=== PATIENT | female | born 1965 | race Asian ===

== ENCOUNTER → 2016-11-30 | Outpatient (CLI) | payer BC, OTHER ==
--- NOTE | 2016-12-01 09:37 | CT ---
CT Upper Extremity, Left Forearm Without Contrast History: History of radius and ulna fracture with open reduction internal fixation. Delayed healing. Technique: Thin cut helical images were obtained of the forearm without contrast. Technique was optim ized to help diminish beam hardening artifact from the patient's known hardware. Multiplanar reformat ion was performed. Findings: Postsurgical changes are seen of open reduction internal fixation of a distal diaphyseal fr acture of the radius. Hardware appears intact without evidence for lucency around the plate or fixati on screws. There is an oblique fracture plane remaining at the mid aspect of the fixation with small amount of bridging bone dorsally. Majority of the fracture line does not have bridging bone. The padmini cent interfragmentary screw does not bridge this fracture plane. Postsurgical changes are seen of ope n reduction internal fixation of the distal diaphysis fracture of the ulna as well with mild residual comminuted fracture remaining at the mid aspect of the fixation. There is bridging bone at this frac ture of approximately 25-50%. No evidence for hardware fracture or lucency around the fixation hardwa re. No evidence for soft tissue mass or abnormal fluid collection. Impression: Postsurgical changes of open reduction internal fixation of the distal diaphysis fracture of the radius and ulna as above. No evidence for hardware complication. There is incomplete healing with osseous bridging with minimal osseous bridging at the distal radius fracture and 25-50% of osseo us bridging at the ulnar fracture.
== END ==
LOC: FIMAGING 13:36
PROVIDERS: ATTEND Orthopaedic Surgery Hand Surgery
DX: S52.92XG Unspecified fracture of left forearm, subsequent encounter for closed fracture with delayed healing (principal)

== ENCOUNTER → 2017-01-10 | Outpatient (CLI) | payer BC | LOC: CIMAGING 10:55 | PROVIDERS: ATTEND Physician Assistant | DX: S52.202D Unspecified fracture of shaft of left ulna, subsequent encounter for closed fracture with routine healing (principal); S52.302G Unspecified fracture of shaft of left radius, subsequent encounter for closed fracture with delayed healing | CPT/HCPCS: 73200-PO ==

== ENCOUNTER → 2017-03-29 | Outpatient (CLI) | payer BC | LOC: CIMAGING 14:06 | PROVIDERS: ATTEND Orthopaedic Surgery Hand Surgery | DX: S52.502G Unspecified fracture of the lower end of left radius, subsequent encounter for closed fracture with delayed healing (principal); S52.602G Unspecified fracture of lower end of left ulna, subsequent encounter for closed fracture with delayed healing | CPT/HCPCS: 73200-PO ==